=== PATIENT | male | born 1955 | race Caucasian/White ===

== ENCOUNTER 2017-03-08 08:53 | Emergency (ER) | payer BC ==
[2017-03-08 09:12] VITALS: BP 154/98
[2017-03-08] MEDS ORDERED: methylPREDNISolone 125 MG* 2 ML VIAL IM ONE (09:37)
--- NOTE | 2017-03-08 09:51 | UC ---
Skin Complaint HPI - HPI Summary HPI Summary: ONE WEEK OF ITCHY WEEPING RASH TO BILATERAL LOWER LEGS AND ARMS. HAD BEEN IN [place] LAST WEEK TRYING TO CATCH BUTTERFLIES, BELIEVES HE ENCOUNTERED POISION CIRA /OAK. - History of Current Complaint Chief Complaint: UCRash Time Seen by Provider: 03/08/17 09:27 Stated Complaint: SKIN COMPLAINT Hx Obtained From: Patient Onset/Duration: Lasting Days Skin Exposure Onset/Duration: Weeks Ago Onset Severity: Mild Current Severity: Moderate Location: Discrete Character: Pruritus, Redness Aggravating: Touch Alleviating: OTC Creams/Salves Associated Signs & Symptoms: Positive: Rash, Drainage. Negative: Fever, Chills , Cough, Wheezing, Hoarseness, Bruising, Tenderness, Red Streaks Related History: Possible Reaction to: Environmental Exposure - Allergy/Home Medications Allergies/Adverse Reactions: Allergies Allergy/AdvReac Type Severity Reaction Status Date / Time No Known Allergies Allergy Verified 03/08/17 09:05 Review of Systems Constitutional: Negative Skin: Rash Eyes: Negative ENT: Negative Respiratory: Negative Cardiovascular: Negative Gastrointestinal: Negative Genitourinary: Negative Motor: Negative Neurovascular: Negative Musculoskeletal: Negative Neurological: Negative Psychological: Negative All Other Systems Reviewed And Are Negative: Yes PMH/Surg Hx/FS Hx/Imm Hx Previously Healthy: Yes - Surgical History Surgical History: Yes Surgery Procedure, Year, and Place: Hernia repair 15 years ago - Family History Known Family History: Positive: Unknown Negative: Diabetes - Social History Occupation: Employed Full-time Lives: With Family Alcohol Use: None Substance Use Type: None Smoking Status (MU): Never Smoked Tobacco Have You Smoked in the Last Year: No - Immunization History Hx Tetanus, Diphtheria Vaccination: Yes Vaccination Up to Date: Yes Physical Exam Triage Information Reviewed: Yes Appearance: Well-Appearing, No Pain Distress, Well-Nourished Vital Signs: Initial Vital Signs Temp 97.8 F 03/08/17 09:05 Pulse 65 03/08/17 09:05 Resp 18 03/08/17 09:05 BP 154/98 03/08/17 09:05 Pulse Ox 99 03/08/17 09:05 Vital Signs Reviewed: Yes Eye Exam: Normal ENT Exam: Normal ENT: Positive: Normal ENT inspection, TMs normal Dental Exam: Normal Neck exam: Normal Neck: Positive: Supple, Nontender Respiratory Exam: Normal Respiratory: Positive: Chest non-tender, Lungs clear, Normal breath sounds, No respiratory distress, No accessory muscle use Cardiovascular Exam: Normal Cardiovascular: Positive: RRR, No Murmur, Pulses Normal Abdominal Exam: Normal Musculoskeletal Exam: Normal Musculoskeletal: Positive: Strength Intact, ROM Intact Neurological Exam: Normal Psychological Exam: Normal Skin: Positive: rashes - BILATERAL ARMS AND LEGS Course/Dx - Differential Diagnoses - Skin Complaint Differential Diagnoses: Cellulitis, Contact Dermatitis, Eczema, Impetigo, Poison Cira, Poison [place], Tinea - Diagnoses Provider Diagnoses: POISON CIRA REACTION BIALTERAL ARMS AND LEGS Discharge - Discharge Plan Condition: Stable Disposition: HOME Prescriptions: Triamcinolone 0.5% CREAM(NF) [Triamcinolone 0.5% CREAM*] 1 applic TOPICAL TID # 2 tube Patient Education Materials: Poison Cira (ED) Referrals: Jaylen Mendez MD [Primary Care Provider] -
== END 2017-03-08 10:15 | disposition home or self-care (01) ==
LOC: UCCORT 08:53
DX: L23.7 Allergic contact dermatitis due to plants, except food (principal)
CPT/HCPCS: 96372; 99212; G0463; J2930